=== PATIENT | male | born 1995 | race Caucasian/White ===

== ENCOUNTER 2020-09-20 16:51 | Emergency (ER) | payer OTHER ==
[2020-09-20] MEDS ORDERED: FIORICET1 EACH PO (18:19)
== END 2020-09-20 18:32 | disposition home or self-care (01) ==
LOC: FER 16:51
DX: G43.909 Migraine, unspecified, not intractable, without status migrainosus (principal)
CPT/HCPCS: 70450; 96372; J1100; J1885